=== PATIENT | male | born 1990 | race Caucasian/White ===

== ENCOUNTER 2017-03-20 15:00 | Emergency (ER) | payer MEDICAID, OTHER ==
[~2017-03-20] VITALS: Ht 182.9 cm; Wt 90.7 kg
[2017-03-20 15:25] VITALS: BP 126/74
== END 2017-03-20 16:28 | disposition home or self-care (01) ==
LOC: ER 15:03
DX: S51.011A Laceration without foreign body of right elbow, initial encounter (principal); V19.9XXA Pedal cyclist (driver) (passenger) injured in unspecified traffic accident, initial encounter; Y93.I9 Activity, other involving external motion; Y92.89 Other specified places as the place of occurrence of the external cause; Y99.8 Other external cause status
CPT/HCPCS: 12002

== ENCOUNTER 2019-03-27 23:21 | Emergency (ER) | payer OTHER, MEDICAID ==
[~2019-03-27] VITALS: Ht 188 cm; Wt 113.4 kg
[2019-03-27 23:39] VITALS: BP 127/90
[2019-03-28] MEDS ORDERED: TETANUS-DIPTH-ACEL PERTUSSIS 0.5ML SYRG IM ONE (01:45)
[2019-03-28] MEDS ORDERED: cefTRIAXone SOD 1,000 MG VL IM ONE (01:45)
== END 2019-03-28 02:25 | disposition home or self-care (01) ==
LOC: ER 23:21 → EDBD 23:21 → ER 03-28 02:25
DX: S01.01XA Laceration without foreign body of scalp, initial encounter (principal); R51 Headache; Y08.89XA Assault by other specified means, initial encounter; Y93.89 Activity, other specified; Y99.8 Other external cause status; Y92.89 Other specified places as the place of occurrence of the external cause
CPT/HCPCS: 12002; 70450; 70486; 72125; 73600; 90471; 90715; 96372; 99284; J0696